=== PATIENT | female | born 1995 | race Caucasian/White ===

== ENCOUNTER 2021-03-20 20:00 | Emergency (ER) | payer MEDICAID, SELFPAY ==
[2021-03-20 20:02] VITALS: BP 118/75; PULSE 96; RESP 16; TEMP 35.9; O2SAT 97; BMI 34.0
--- NOTE | 2021-03-20 20:22 | RAD_ITS ---
STUDY: X-RAY CHEST REASON FOR EXAM: Female, 25 years old. cough TECHNIQUE: Single AP portable view of the chest. COMPARISON: September 17, 2016 FINDINGS: The lungs are clear and expanded. There is no demonstrated pleural abnormality. Normal size heart. Normal mediastinum and jesus. Normal visualized pulmonary arteries. Normal visualized aortic arch and descending thoracic aorta. There is a levoscoliosis of the thoracic spine. Normal visualized ribs, clavicles, and shoulders. There is no demonstrated abnormality of the visualized soft tissue structures of the upper abdomen. RAD/Chest 1 View (Portable) IMPRESSION: Normal x-ray examination of the chest. Electronically Signed: Dayton Burger MD at 21:29 EDT , Service support ,
--- NOTE | 2021-03-20 20:29 | EDS_ITS ---
HPI History of Present Illness Chief Complaint: Cough Narrative Narrative: 25-year-old female presenting with cough, congestion, rhinorrhea. She states she has seasonal allergies and none of the medication she takes form work. She also has a history of asthma but has not been wheezing. She has used her albuterol inhaler in the hopes that it would help with her coughing. It has not. She has not had fever, chills, myalgias, change in taste or smell. Patient had COVID-19 in July of last year so she likely does not have COVID- 19 now. [facility] Medical History (Updated 03/20/21 @ 20:41 by Melissa Collazo RN) Anxiety Asthma Congenital heart defect Depression Home Medications sertraline 150 mg PO DAILY 09/17/16 [History Last Taken 09/17/16] albuterol sulfate [ProAir HFA] 1 inh INHALATION Q6H PRN #8.5 g 03/20/21 [Rx Last Taken Unknown] Allergy/AdvReac Type Severity Reaction Status Date / Time No Known Allergies Allergy Verified 03/20/21 20:01 Social History Smoking Status: Current every day smoker tobacco type: cigarettes ROS ROS ED Constitutional Constitutional ED: Denies chills or fever(s) Eyes Eyes: Denies blurry vision or diplopia ENT ENT ED: Reports rhinorrhea Cardiovascular Cardiovascular: Denies chest pain or palpitations Respiratory/Chest Respiratory/Chest: Reports cough; Denies dyspnea or sputum Gastrointestinal Gastrointestinal: Denies abdominal pain, nausea or vomiting Genitourinary Genitourinary ED: Denies dysuria or hematuria Musculoskeletal Musculoskeletal: Denies arthralgias or myalgias Integumentary Denies abscess, Abrasions or rash Neurologic Neurologic: Denies headache(s), paresthesias or weakness Psychiatric Psychiatric: Denies anxiety or depression EXAM Physical Exam Const Vital Signs: 03/20/21 20:02 Temperature 96.7 F L Temperature Source Temporal Pulse Rate 96 Respiratory Rate 16 Blood Pressure 118/75 Blood Pressure Mean 89 Pulse Ox 97 Positive well nourished General Appearance ED: NAD HEENT Reports moist mucous membranes HEENT Narrative: Nasal congestion atraumatic Eyes PERRL and EOMs intact bilaterally Neck no lymphadenopathy and supple Resp normal respiratory effort and clear to auscultation bilaterally Auscultation: Negative for wheezes Cardio regular rate and regular rhythm Neuro oriented x3 Sensorium / Orientation: alert Psych mental status grossly normal Thought Process: normal thought process Skin Lesions: no lesions Rashes: no rashes MDM MDM MDM Narrative Medical decision making narrative: Patient presented with cough for a week and no viral symptoms. She is not wheezing on examination. Her history and physical is most consistent with allergic rhinitis. She is counseled to start Claritin. I did obtain a chest x-ray on my interpretation this is negative for acute findings. Patient will be given follow-up with ENT. Patient stable discharge. Impression: 1. Allergic rhinitis Discharge Plan Triage Chief Complaint: Cough ED Provider: Arnulfo Wilks Dx/Rx/DC Orders Instructions: ED Allergic Rhinitis Prescriptions: New albuterol sulfate [ProAir HFA] 90 mcg/actuation HFA aerosol inhaler 1 inh inhalation Q6H PRN (Reason: shortness of breath or wheezing) Qty: 8.5 RF: 0 No Action sertraline 50 MG tablet 150 mg PO DAILY RF: 0 Primary Care Provider: PodlogKiley denton NP Referrals: Christofer Swartz MD [STAFF PHYSICIAN] - As soon as possible Kiley Marte NP, [employer]ING MACHINE OPERATOR-[employer] [Primary Care Provider] - Disposition Disposition: Home, Self Care
== END 2021-03-20 21:43 | disposition home or self-care (01) ==
PROVIDERS: Emergency Provider Student in an Organized Health Care Education/Training Program; PCP Nurse Practitioner Primary Care
DX: J45.909 Unspecified asthma, uncomplicated (principal); F32.9 Major depressive disorder, single episode, unspecified; F41.9 Anxiety disorder, unspecified; F17.210 Nicotine dependence, cigarettes, uncomplicated; Z79.899 Other long term (current) drug therapy; Z86.16 Personal history of COVID-19
CPT/HCPCS: 71045; 99282

== ENCOUNTER 2023-03-28 10:41 | Emergency (ER) | payer SELFPAY ==
[2023-03-28 10:42] VITALS: BP 110/72; PULSE 115; RESP 14; TEMP 37.1; O2SAT 98; BMI 38.9
--- NOTE | 2023-03-28 10:55 | EX.ED.DYSGE1 ---
HPI History of Present Illness Chief Complaint: Edema Narrative Narrative: Patient is a 27-year-old female who is presenting with flulike symptoms since Monday. Patient is complaining of nausea, vomiting, myalgia, arthralgia, and not able to eat since Monday. Patient has no headache or neck pain. No ear pain, no sore throat. No chest pain or shortness of breath. Positive nausea vomiting. No diarrhea constipation. Positive urinary frequency, urgency, no dysuria. Patient states her urine is darker. Patient in the last 2 days is able to drink urinate, patient has not been able to eat. Patient has had 1 episode of emesis yesterday and one episode today. Patient looks well. Father at bedside. Patient states she is not , she is due to have her menses in the next few days. No recent traveling. No sick contacts. No other acute complaints. Patient is a ST [employer], she is due to start working again tomorrow. No rash, no other acute complaints. [facility] Medical History (Updated 03/28/23 @ 12:[address] Luc Guevara DO) Anxiety Asthma Congenital heart defect Depression Home Medications sertraline 50 mg tablet 150 mg PO DAILY 09/17/16 [History Last Taken 09/17/16] albuterol sulfate 90 mcg/actuation aerosol inhaler (ProAir HFA) 1 inh inhalation Q6H PRN shortness of breath or wheezing #8.5 grams 03/20/21 [Rx Last Taken Unknown] ondansetron 4 mg disintegrating tablet 4 mg PO Q8H PRN PRN Nausea #10 tabs 03/28/23 [Rx Last Taken Unknown] sulfamethoxazole 400 mg-trimethoprim 80 mg tablet (Bactrim) 1 tab PO QHS 5 days #5 tabs 03/28/23 [Rx Last Taken Unknown] sulfamethoxazole 800 mg-trimethoprim 160 mg tablet 1 tab PO BID #10 TABLETS 03/28/23 [Rx Last Taken Unknown] Allergy/AdvReac Type Severity Reaction Status Date / Time No Known Allergies Allergy Verified 03/28/23 10:42 Social History Smoking Status: Current every day smoker tobacco type: cigarettes ROS ROS ED ROS Narrative REVIEW OF SYSTEMS: Unless otherwise stated in this report the patient's positive and negative responses for review of systems for constitutional, eyes, ENT, cardiovascular, respiratory, gastrointestinal, neurological, , musculoskeletal, and integument systems and related systems to the presenting problem are either stated in the history of present illness or were not pertinent or were negative for the symptoms and/or complaints related to the presenting medical problem. EXAM Physical Exam Narrative Exam Narrative: Vital signs reviewed and patient is not hypoxic. General: The patient appears well and in no apparent distress. Patient is resting comfortably on cart. Not toxic, lethargic, or listless. Skin: Warm, dry, no pallor noted. There is no rash noted. Multiple piercings. Head: Normocephalic, atraumatic Eye: Normal conjunctiva, no drainage, EOMI. PERRL. Ears, Nose, Mouth, and Throat: oral mucosa is moist. Nares patent. Mouth without vesicles. Cardiovascular: Regular Rate and Rhythm, no murmurs, gallops, or rubs Respiratory: Patient is in no distress, no accessory muscle use, lungs are clear to auscultation, no wheezing, rales or rhonchi Back: non-tender, no CVA tenderness bilaterally to percussion. NO CTLS midline or paraspinal tenderness to palpation. GI: Soft, obese, mild left lower quadrant tenderness to palpation, no peritoneal signs, no flank pain bilateral, otherwise no tenderness to palpation, no masses appreciated. No rebound, guarding, or rigidity noted. Musculoskeletal: The patient has full range of motion of all extremities and joints with no difficulty. Patient has no motor, no sensory deficits. Neurological: A&O x4, normal speech, no focal neurological deficits. Psychiatric: Cooperative Const Vital Signs: 03/28/23 10:42 Temperature 98.7 F Temperature Source Temporal Pulse Rate 115 H Respiratory Rate 14 Blood Pressure 110/72 Blood Pressure Mean 84 Pulse Ox 98 MDM MDM MDM Narrative Medical decision making narrative: No acute indication for significant amount of testing. Patient will have urine checked, , and patient was given Zofran ODT. Patient will be given a prescription for Zofran ODT as well. Patient was educated on continuing to increase fluids at home, especially Gatorade, Powerade and water. Patient is due to go back to work tomorrow. Patient will follow-up with PCP as needed. No questions at discharge. Patient does have evidence of UTI as well, patient was placed on Bactrim. Patient was given a work note for tomorrow if needed. Patient is aware of protein in her urine. Patient will follow-up with PCP next week to have her urine rechecked to make sure that protein has resolved. Patient is aware that protein could occur in urine with dehydration or infection, but it should not be in the urine, she will follow-up with PCP to have this rechecked next week Lab Data Attestation: I reviewed the patient's lab results. Labs: Laboratory Results - last 24 hr 03/28/23 11:00 Urine Color Yellow Urine Clarity Sl. Cloudy Urine pH 6.5 Ur Specific [place] 1.010 Urine Protein 500 H Urine Glucose (UA) Normal Urine Ketones 5 H Urine Occult Blood 150 H Urine Nitrite Negative Urine Bilirubin 1 H Urine Urobilinogen 1 H Ur Leukocyte Esterase 500 H Urine RBC 0 SEEN Urine WBC 25-50 SEEN Ur Squamous Epith Cells 0-5 SEEN Urine Bacteria 1+ Urine Mucus 0 SEEN Urine Test Negative Discharge Plan Triage Chief Complaint: Edema Other Complaint: Nausea/Vomiting ED Provider: Luc Guevara Dx/Rx/DC Orders Clinical Impression: Myalgia, Arthralgia, Dehydration, mild, Nausea & vomiting, UTI (urinary tract infection) Instructions: Urinary Tract Infections in Women, ED Arthralgia, ED Dehydration (Adult), ED Myalgias, ED Vomiting (Adult) Prescriptions: New ondansetron 4 mg tablet,disintegrating 4 mg PO Q8H PRN PRN (Reason: Nausea) Qty: 10 0RF sulfamethoxazole-trimethoprim [Bactrim] 400-80 mg tablet 1 tab PO QHS 5 Days Qty: 5 0RF sulfamethoxazole-trimethoprim [sulfamethoxazole-trimethoprim] 800-160 mg tablet 1 tab PO BID Qty: 10 0RF No Action sertraline 50 MG tablet 150 mg PO DAILY albuterol sulfate [ProAir HFA] 90 mcg/actuation HFA aerosol inhaler 1 inh inhalation Q6H PRN (Reason: shortness of breath or wheezing) Qty: 8.5 0RF Stand Alone Forms: ED Work / School Excuse Primary Care Provider: Ruperto Ring Referrals: PodlogarKiley B[employer]IDED RUG MAKER, B[employer]ED [employer]KER-[employer] [Non-Staff] - Activity Restrictions/Additional Instructions: Continue increasing fluids at home, including Gatorade, Powerade, water. Use Zofran only as needed if you are not drinking or urinating off. Continue alternating Tylenol Motrin as needed for myalgia, arthralgia. Follow-up with PCP for any other additional testing and for reevaluation in 2-3 days. Increase fluids with urinary tract infection as well, urine culture is pending. Finish antibiotic. Disposition Disposition: Home, Self Care
[2023-03-28] MEDS: Ondansetron ODT 4 MG Tablet PO (11:07)
[2023-03-28 11:15] LABS: Mucous, Urine 0 SEEN /hpf (<or=2+); Red Blood Cells-Urine 0 SEEN /hpf (0-5)
[2023-03-28 11:16] LABS: Color, Urine Yellow (Yellow); Glucose, Dipstick Normal (Normal); Ketone-Dipstick 5 mg/dl (Negative); Leukocyte Esterase-Dipstick 500 /ul (Negative); Nitrite-Dipstick Negative (Negative); Occult Blood-Urine 150 /ul (Negative); Protein-Dipstick 500 mg/dl (Negative); Urine Clarity Sl. Cloudy (Clear); Urine Urobilinogen 1 mg/dl (Normal); Urine pH 6.5 (5.0 - 8.0)
[2023-03-28 11:20] LABS: Urine Bilirubin Dipstick 1 mg/dL (Negative)
[2023-03-28 11:22] LABS: Bacteria 1+ /hpf (None Seen); Internal QC Validated? YES +Cl - CLEAR BKGD; Pregnancy, Urine Negative Negative; Squamous Epithelial Cells - UA 0-5 SEEN /hpf (5-10); White Blood Cells 25-50 SEEN /hpf (0-5)
== END 2023-03-28 12:22 | disposition home or self-care (01) ==
PROVIDERS: Emergency Provider Emergency Medicine; PCP Family Medicine; Visit Provider Emergency Medicine
DX: N39.0 Urinary tract infection, site not specified (principal); M79.10 Myalgia, unspecified site; E86.0 Dehydration; R11.2 Nausea with vomiting, unspecified; J45.909 Unspecified asthma, uncomplicated; F17.210 Nicotine dependence, cigarettes, uncomplicated
CPT/HCPCS: 81001; 81025; 99283

== ENCOUNTER 2025-01-17 09:53 | Inpatient (IN) | payer BC, SELFPAY ==
[2025-01-17] VITALS (7 sets, daily range): BP systolic 112–141; BP diastolic 49–78; PULSE 80–110; RESP 16–19; TEMP 36.6–37.4; O2SAT 97–100; BMI 36.3
[2025-01-17 10:43] LABS: Absolute Lymphocyte Count 0.47 X10^3/uL (0.83-4.51); Absolute Neutrophil Count 6.7 X10^3/uL (2.0-7.7); Basophil# 0.04 X10^3/uL; Basophil% 0.5 % (0-1); Eosinophil# 0.02 X10^3/uL; Eosinophils% 0.3 % (0-5); Hematocrit 30.8 % (37-47); Hemoglobin 11.1 g/dL (12.0-15.0); Lymphocyte # 0.47 X10^3/ul (0.83-4.51); Lymphocyte % 5.9 % (19-41); Mean Corpuscular Hgb 31.8 pg (27.0-32.0); Mean Corpuscular Volume 88.3 fL (81-99); Mean Platelet Vol. 11.8 fl (6.2-12.0); Monocyte% 8.8 % (0-10); NRBC Flagged by Analyzer 0 % (0-5); Neutrophil # 6.74 X10^3/uL (2.7-7.7); Neutrophil % 84.2 % (47-70); POSITIVE DIFFERENTIAL YES; Platelet Count 178 K/mm3 (150-450); RBC Distribution Width CV 12.9 % (11.6-14.6); RBC Distribution Width SD 41.2 fl (35.1-43.9); Red Blood Count 3.49 M/mm3 (4.2-5.4)
[2025-01-17 11:01] LABS: ALB/GLOB Ratio 1.2 RATIO (0.9-2.4); AST(SGOT) 33 U/L (<=31); Alanine Aminotransfer ALT/SGPT 19 U/L (<=34); Albumin, Serum 3.8 g/dL (3.5-5.0); Alkaline Phosphatase 78 U/L (35-104); Anion Gap 10 (5-15); BUN 18 mg/dL (4-19); BUN/Creat Ratio 8.1 RATIO (10-20); Calcium,Total 8.9 mg/dL (7.6-11.0); Carbon Dioxide 19.4 mmol/L (21.0-32.0); Chloride 105 mmol/L (98-108); Creatinine, Serum 2.18 mg/dL (0.70-1.20); EST Glomerular Filtration Rate 31 (>60); Estimated Creatinine Clearance 36.05 ml/min (50-250); Globulin 3.1 g/dL (2.2-4.2); Glucose 105 mg/dL (70-99); Potassium 4.7 mmol/L (3.3-5.1); Protein, Total 6.9 g/dL (5.9-8.4); Sodium Level 134 mmol/L (133-145); Total Bilirubin 0.72 mg/dL (0.00-1.30)
[2025-01-17 11:02] LABS: Mucous, Urine 0 SEEN /hpf (<or=2+)
[2025-01-17] MEDS: 0.9% Normal Saline (1000mL) 1,000 ML 999 ML IV (11:05)
[2025-01-17] MEDS: Acetaminophen 325 MG Tablet 650 MG PO ×2 (11:06→19:02)
[2025-01-17 11:13] LABS: Internal QC Validated? YES +Cl - CLEAR BKGD; Pregnancy, Serum, hCG Quali. NEGATIVE Negative
--- NOTE | 2025-01-17 11:25 | CT_ITS ---
PROCEDURE: ABDOMEN/PELVIS WITHOUT CONT 01/17/2025 REASON FOR EXAM: BACK PAIN, JOE, FEVER TECHNIQUE: Contiguous axial scans of 2.5 mm slice thicknesses. Sagittal and coronal reconstruction images were obtained. One or more dose reduction techniques were used (e.g., automated exposure control, adjustment of mA and/or kv according to patient size, use of iterative reconstruction technique). COMPARISON: No relevant prior FINDINGS: Lung bases: Unremarkable Liver: Normal in size and attenuation. Gallbladder: Normal. Spleen: Marked splenomegaly. Tip of the spleen extends below the inferior pole of the left kidney. Spleen measures approximately 17 cm in long axis. Pancreas: Unremarkable. Adrenals: No nodules or thickening. Kidneys: Low-density areas in both kidneys measuring 2.5 cm on the left and 2.0 and 1.9 cm on the right. No calcifications. Bladder: Unremarkable. Reproductive Organs: Uterus unremarkable. No adnexal masses. Bowel: No abnormalities demonstrated. Appendix: Normal. Lymph nodes: No adenopathy. Vasculature: No vascular abnormalities. Peritoneum / Retroperitoneum: No masses. No free air. No free fluid. Bones: Normal osseous structures. CT/Abdomen/Pelvis without Cont IMPRESSION: MARKED SPLENOMEGALY. Reading Location: [facility]
[2025-01-17 11:30] LABS: Color, Urine Yellow (Yellow); Glucose, Dipstick Normal (Normal); Ketone-Dipstick Negative (Negative); Leukocyte Esterase-Dipstick 500 /ul (Negative); Nitrite-Dipstick Positive (Negative); Occult Blood-Urine 25 /ul (Negative); Protein-Dipstick 500 mg/dl (Negative); Urine Bilirubin Dipstick Negative (Negative); Urine Clarity Sl Cldy (Clear); Urine Urobilinogen Normal (Normal)
[2025-01-17 11:32] LABS: Bacteria 3+ /hpf (None Seen); Red Blood Cells-Urine 0-5 SEEN /hpf (0-5); Squamous Epithelial Cells - UA 5-10 SEEN /hpf (5-10); White Blood Cells >100 SEEN /hpf (0-5)
--- NOTE | 2025-01-17 12:40 | EX.ED.DYSGE1 ---
HPI History of Present Illness Chief Complaint: Complaint Informant: patient Narrative Narrative: Patient is a 29-year-old female with a history of sounds like a ventral septal defect, anxiety and depression, asthma and reports history of horseshoe kidney presenting from PCP for concern of pyelonephritis. Patient was seen in [facility] this morning for symptoms of back pain and nausea as well as fever 101 today. She states this feels like the last time she had kidney infection so she went there. They sent her to the emergency room. Patient notes that for the past 2 to 3 days she has had constant aching bilateral back pain. Denies any radiation of pain. Denies any dysuria or hematuria but has had associated urgency and frequency. Had episode of vomiting and nausea this morning. Took Excedrin last night for her symptoms. Reports some mild abdominal pain. Denies any history of kidney stones. Is not concerned for . Last menstrual period was January 04. No other complaints or concerns at this time. [facility] Medical History Anxiety Depression Asthma Congenital heart defect Home Medications ?Medication ?Instructions ?Recorded ?Last Taken ?Type sertraline 100 mg tablet 100 mg PO DAILY 01/17/25 Unknown History Allergy/AdvReac Type Severity Reaction Status Date / Time No Known Allergies Allergy Verified 01/17/25 09:54 Social History Smoking Status: Never smoker ROS ROS ED Constitutional Constitutional ED: Reports chills and fever(s) Cardiovascular Cardiovascular: Denies chest pain Respiratory/Chest Respiratory/Chest: Denies cough Gastrointestinal Gastrointestinal: Reports abdominal pain, nausea and vomiting; Denies constipation or diarrhea Musculoskeletal Musculoskeletal: Reports back pain; Denies arthralgias Integumentary Denies rash Neurologic Neurologic: Denies paresthesias or weakness EXAM Physical Exam Const Vital Signs: 01/17/25 09:54 01/17/25 10:34 01/17/25 11:24 Temperature 98 F 98 F Temperature Source Temporal Temporal Pulse Rate 110 H 98 80 Respiratory Rate 19 H 16 16 Blood Pressure 141/70 H 141/78 H 112/71 Blood Pressure Mean 93 99 84 Pulse Ox 98 100 97 Oxygen Delivery Method Room Air Room Air 01/17/25 12:55 Temperature Temperature Source Pulse Rate 97 Respiratory Rate 19 H Blood Pressure Blood Pressure Mean Pulse Ox 99 Oxygen Delivery Method Room Air Positive well nourished and well developed General Appearance ED: well developed and NAD HEENT Reports moist mucous membranes Chest Wall inspection of chest normal Resp normal respiratory effort and clear to auscultation bilaterally Cardio regular rate and regular rhythm GI normal to inspection, nondistended, normoactive bowel sounds, non-tender and non-distended Palpation: soft; Negative for tender or guarding Back/Spine Back/Spine Narrative: No specific CVA tenderness the patient has bilateral lower thoracic discomfort. No midline tenderness. Lumbar Spine / Lower Back: Negative for lumbar spinal tenderness Extremity normal to inspection Neuro oriented x3 Sensorium / Orientation: alert Motor Exam: Negative for general weakness Psych mental status grossly normal Skin no rashes or lesions noted and no wounds MDM MDM MDM Narrative Medical decision making narrative: Patient is evaluated for back pain, fever prior to arrival now nausea and vomiting. Ports history of horseshoe kidney. Has a reported history of urinary tract infections. Not aware of any history of CKD. Differential includes pyelonephritis, renal colic, JOE and electrolyte abnormality as well as small bowel obstruction given her vomiting. CBC largely normal except for mild anemia with a hemoglobin 11.1. Her platelets are normal. CMP does show an JOE with a creatinine of 2.18 and mildly decreased bicarb of 19.4 however she is a normal anion gap. Urinalysis is highly consistent with urinary tract infection with positive nitrates, 500 leukocyte esterase, greater than 100 white blood cells and 3+ bacteria. Culture sent. Started on IV Rocephin. is negative. CT abdomen pelvis is obtained which does not show any acute abnormalities however it does show marked splenomegaly. Patient is informed of this and she states that she thinks she had an ultrasound a couple years ago for an enlarged spleen. The CT did comment on low-density areas of both kidneys measuring 2.5 cm on the left and 2 and 1.9 cm on the right with no calcifications. This is of uncertain clinical significance. Given her suspected pyelonephritis given back pain and UTI on exam as well as JOE do think she would benefit from admission. Case is discussed with hospitalist, Dr. Chandler. Lab Data Attestation: I reviewed the patient's lab results. Labs: Laboratory Results - last 24 hr 01/17/25 01/17/25 10:25 10:56 WBC 8.0 RBC 3.49 L Hgb 11.1 L Hct 30.8 L MCV 88.3 MCH 31.8 MCHC 36.0 RDW Std Deviation 41.2 RDW Coeff of [place] 12.9 Plt Count 178 MPV 11.8 Immature Gran % (Auto) 0.300 Neut % (Auto) 84.2 H Lymph % (Auto) 5.9 L [place] % (Auto) 8.8 Eos % (Auto) 0.3 Baso % (Auto) 0.5 Absolute Neuts (auto) 6.7 Absolute Lymphs (auto) 0.47 L Nucleated RBC % 0 Sodium 134 Potassium 4.7 Chloride 105 Carbon Dioxide 19.4 L Anion Gap 10 BUN 18 Creatinine 2.18 H Estim Creat Clear Calc 36.05 L Est GFR (MDRD) Non-Af 31 L BUN/Creatinine Ratio 8.1 L Glucose 105 H Calcium 8.9 Total Bilirubin 0.72 AST 33 H ALT 19 Alkaline Phosphatase 78 Total Protein 6.9 Albumin 3.8 Globulin 3.1 Albumin/Globulin Ratio 1.2 Serum , Qual NEGATIVE Urine Color Yellow Urine Clarity Sl Cldy Urine pH 6.0 Ur Specific [place] 1.010 Urine Protein 500 H Urine Glucose (UA) Normal Urine Ketones Negative Urine Occult Blood 25 H Urine Nitrite Positive H Urine Bilirubin Negative Urine Urobilinogen Normal Ur Leukocyte Esterase 500 H Urine RBC 0-5 SEEN Urine WBC >100 SEEN Ur Squamous Epith Cells 5-10 SEEN Urine Bacteria 3+ Urine Mucus 0 SEEN Radiography Diagnostic Testing: Clinical Impression(s) from Imaging Studies Abdomen/Pelvis CT 01/17/25 11:25 IMPRESSION: MARKED SPLENOMEGALY. Reading Location: [facility] Management Discussion w/another healthcare provider: Hospitalist Discharge Plan Dx/Rx/DC Orders Clinical Impression: Complicated urinary tract infection, JOE (acute kidney injury) Disposition Disposition: Acute Care Hospital [facility] Discharge Date/Time: 01/17/25 15:05
--- NOTE | 2025-01-17 13:33 | HP.PCM.HOS_ITS ---
HPI - General General Date of Admission: 01/17/25 Date of Service: 01/17/25 Chief Complaint: Back pain, urinary frequency and urgency HPI Narrative LESA MANDUJANO, is a 29-year-old female history of ?VSD, anxiety depression, asthma, horseshoe kidney presented to [facility] ED 01/17/2025 from her PCPs office due to concerns for UTI versus pyelonephritis. She was seen in clinic clinic [place] this a.m. for back pain and nausea as well as fever of 101 today and patient felt like his last time she had a kidney infection so she was sent to the ED. In the ED temperature 98, heart rate 110 with blood pressure 141/70, respiratory rate 19 and pulse ox 98% on room air. Patient patient noted to have white blood cell count of 8, hemoglobin of 11.1, creatinine 2.18 with no values since 2016, negative test, UA suspicious for UTI. CT abdomen pelvis only noted splenomegaly and in the body of the report noted some hypodensities in the kidneys. Given patient's elevated creatinine with her fever, symptoms, positive UA hospitalist contacted for admission. Patient evaluated at bedside and reports that back pain especially on the right side, urgency, frequency over the past 3 days with vomiting this a.m. fevers above. Presently feels about the same. No abdominal pain in the front or GI symptoms, ROS otherwise negative [facility] Medical History Anxiety Depression Asthma Congenital heart defect Home Medications ?Medication ?Instructions ?Recorded ?Last Taken ?Type sertraline 50 mg tablet 150 mg PO DAILY 09/17/1603/27 History albuterol sulfate 90 mcg/actuation 1 inh inhalation Q6 H PRN shortness 03/20/21 Unknown Rx aerosol inhaler (ProAir HFA) of breath or wheezing #8. 5 grams ondansetron 4 mg disintegrating 4 mg PO Q8H PRN PRN Na usea #10 tabs 03/28/23 Unknown Rx tablet sulfamethoxazole 400 1 tab PO QHS 5 days #5 tabs 03/28/23 Unknown Rx mg-trimethoprim 80 mg tablet (Bactrim) sulfamethoxazole 800 1 tab PO BID #10 TABLETS Unknown Rx mg-trimethoprim 160 mg tablet Allergy/AdvReac Type Severity Reaction Status Date / Time No Known Allergies Allergy Verified 01/17/25 09:54 Social History Smoking Status: Current every day smoker tobacco type: cigarettes ROS ROS Narrative General: Fever earlier today HENT: Denies headache, denies stuffy nose, denies sore throat EYES: Denies changes in vision Resp: Denies cough, denies shortness of breath Cardiac: Denies chest pain GI: Denies abdominal pain but does have some back pain, denies changes in bowel, nausea earlier today : urinary frequency and urgency Extremity: Denies swelling MSK: Denies weakness Neuro: Denies any numbness/tingling Heme: Denies any bleeding or bruising Skin: Denies rashes Psychiatric: No complaints voiced Vital Signs Vital Signs Vital Signs: 01/17/25 09:54 01/17/25 10:34 01/17/25 11:24 Temperature 98 F 98 F Temperature Source Temporal Temporal Pulse Rate 110 H 98 80 Respiratory Rate 19 H 16 16 Blood Pressure 141/70 H 141/78 H 112/71 Blood Pressure Mean 93 99 84 Pulse Ox 98 100 97 Oxygen Delivery Method Room Air Room Air 01/17/25 12:55 Temperature Temperature Source Pulse Rate 97 Respiratory Rate 19 H Blood Pressure Blood Pressure Mean Pulse Ox 99 Oxygen Delivery Method Room Air Weight Weight: 79.016 kg Body Mass Index (BMI) 36.3 Physical Exam Narrative General: Alert, oriented, no apparent distress HEENT: Atraumatic, normocephalic Eyes: Anicteric, normal conjunctiva, extraocular movements grossly intact Neck: Supple Respiratory: Clear to auscultation bilaterally, normal respiratory effort Cardiovascular: Regular rate and rhythm GI: Soft, nontender, nondistended, right sided flank pain Extremities: No edema Musculoskeletal: Moving all extremities Neuro: No overt focal neurological deficits Skin: No rashes appreciated Psych: Cooperative Results Lab / Micro Data 01/17/25 10:25 01/17/25 10:25 Labs: Laboratory Results - last 24 hr 01/17/25 10:25: WBC 8.0, RBC 3.49 L, Hgb 11.1 L, Hct 30.8 L, MCV 88.3, MCH 31.8, MCHC 36.0, RDW Std Deviation 41.2, RDW Coeff of [place] 12.9, Plt Count 178, MPV 11.8, Immature Gran % (Auto) 0.300, Neut % (Auto) 84.2 H, Lymph % (Auto) 5.9 L, [place] % (Auto) 8.8, Eos % (Auto) 0.3, Baso % (Auto) 0.5, Absolute Neuts (auto) 6.7, Absolute Lymphs (auto) 0.47 L, Nucleated RBC % 0, Sodium 134, Potassium 4.7, Chloride 105, Carbon Dioxide 19.4 L, Anion Gap 10, BUN 18, Creatinine 2.18 H, Estim Creat Clear Calc 36.05 L, Est GFR (MDRD) Non-Af 31 L, BUN/Creatinine Ratio 8.1 L, Glucose 105 H, Calcium 8.9, Total Bilirubin 0.72, AST 33 H, ALT 19, Alkaline Phosphatase 78, Total Protein 6.9, Albumin 3.8, Globulin 3.1, Albumin/Globulin Ratio 1.2, Serum , Qual NEGATIVE 01/17/25 10:56: Urine Color Yellow, Urine Clarity Sl Cldy, Urine pH 6.0, Ur Specific Early 1.010, Urine Protein 500 H, Urine Glucose (UA) Normal, Urine Ketones Negative, Urine Occult Blood 25 H, Urine Nitrite Positive H, Urine Bilirubin Negative, Urine Urobilinogen Normal, Ur Leukocyte Esterase 500 H, Urine RBC 0-5 SEEN, Urine WBC >100 SEEN, Ur Squamous Epith Cells 5-10 SEEN, Urine Bacteria 3+, Urine Mucus 0 SEEN Imaging Radiology Impression Abdomen/Pelvis CT 01/17/25 11:25 IMPRESSION: MARKED SPLENOMEGALY. Reading Location: [facility] Assessment & Plan Assessment/Plan (1) Complicated urinary tract infection: PLAN: Plan # Complicated urinary tract infection - UA highly suggestive of UTI -Urine culture sent -Empiric antibiotics -CT did not comment on any concerns for pyelonephritis # JOE versus CKD in setting of partial kidney -No previous creatinines in recent years for comparison, last 1 was 2017 so unclear if this is JOE or CKD but patient denies known history of kidney failure, only known horseshoe kidney -IV fluids -Repeat in the a.m. -Avoid nephrotoxic agents # Hypodensities in kidney - Will obtain dedicated renal ultrasound given indeterminant renal lesions # Splenomegaly - Patient reports this is known - Outpatient follow-up #Depression/anxiety -Continue home medications # History of asthma - As needed albuterol # History of congenital heart defect - Suspected to be VSD - Noted #DVT ppx: SCDs Leesa Chandler MD Charges/Coding Visit Charges Inpatient E&M: 34537 Init Hosp L2
--- NOTE | 2025-01-17 13:46 | US_ITS ---
EXAM: US Retroperitoneal Limited, Renal CLINICAL INDICATION: INDETERMINANT RENAL LESIONS TECHNIQUE: Real-time limited ultrasound of the retroperitoneum with image documentation. COMPARISON: No relevant prior studies available. FINDINGS: RIGHT KIDNEY: Multiple right renal cysts, largest measuring up to 3.2 cm. No stones. The right kidney measures 8.0 x 4.0 x 4.6 cm. LEFT KIDNEY: Unremarkable. No stones. No hydronephrosis. The left kidney measures 9.6 x 5.6 x 4.7 cm. BLADDER: Urinary bladder appears normal. Prevoid volume 224 cc. OTHER FINDINGS: 3.1 cm cyst with septation. US/Kidney and Bladder IMPRESSION: Bilateral renal cysts. Reading Location: [id number]
[2025-01-17] MEDS: Ceftriaxone 1 GM/50 ML BAG IV (13:48)
[2025-01-17] MEDS: 0.9% Normal Saline (1000mL) 1,000 ML 75 ML IV (19:07)
[2025-01-18] MEDS: Acetaminophen 325 MG Tablet 650 MG PO ×2 (04:39→20:21)
[2025-01-18 04:42] VITALS: BP 134/72; PULSE 87; RESP 16; TEMP 37; O2SAT 100
[2025-01-18 06:53] LABS: Absolute Lymphocyte Count 0.69 X10^3/uL (0.83-4.51); Basophil# 0.03 X10^3/uL; Basophil% 0.6 % (0-1); Eosinophil# 0.03 X10^3/uL; Eosinophils% 0.6 % (0-5); Hematocrit 28.2 % (37-47); Hemoglobin 9.8 g/dL (12.0-15.0); Lymphocyte # 0.69 X10^3/ul (0.83-4.51); Lymphocyte % 12.8 % (19-41); Mean Corp Hgb Conc 34.8 g/dL (32-36); Mean Corpuscular Hgb 31.3 pg (27.0-32.0); Mean Corpuscular Volume 90.1 fL (81-99); Mean Platelet Vol. 10.9 fl (6.2-12.0); Monocyte# 0.61 X10^3/uL; Monocyte% 11.4 % (0-10); NRBC Flagged by Analyzer 0 % (0-5); Neutrophil # 3.99 X10^3/uL (2.7-7.7); Neutrophil % 74.2 % (47-70); Platelet Count 106 K/mm3 (150-450); RBC Distribution Width CV 13.1 % (11.6-14.6); Red Blood Count 3.13 M/mm3 (4.2-5.4); White Blood Count 5.4 K/mm3 (4.4-11.0)
[2025-01-18 07:23] LABS: Anion Gap 10 (5-15); BUN 17 mg/dL (4-19); BUN/Creat Ratio 8.4 RATIO (10-20); Calcium,Total 8.6 mg/dL (7.6-11.0); Carbon Dioxide 20.6 mmol/L (21.0-32.0); Chloride 108 mmol/L (98-108); Creatinine, Serum 1.97 mg/dL (0.70-1.20); EST Glomerular Filtration Rate 35 (>60); Estimated Creatinine Clearance 39.89 ml/min (50-250); Glucose 115 mg/dL (70-99); Sodium Level 138 mmol/L (133-145)
--- NOTE | 2025-01-18 08:15 | PN.HOSP_ITS ---
Reason for Visit Reason for Visit: Dysuria/urinary frequency/urinary urgency Subjective Subjective Patient states she is feeling a bit better today. Still having some ongoing back pain. Afebrile since presentation. Objective Data Objective Data Vital Signs: Vital Signs Temp Pulse Resp BP Pulse Ox O2 Del Method 98.6 F 87 16 134/72 H 100 Room Air 01/18/25 04:42 01/18/25 04:42 01/18/25 04:42 01/18/25 04:42 01/18/25 04:42 01/18/25 04:42 Oxygen Delivery Method Room Air Weight: 79.016 kg Body Mass Index (BMI) 36.3 Intake & Output: Intake and Output for Last 24 Hours 01/16/25 01/17/25 01/18/25 23:59 23:59 23:59 Intake Total 1050 / 1250 350 / 350 Balance 1050 / 1250 350 / 350 Lab / Micro Data 01/18/25 05:58 01/18/25 05:58 Labs: Laboratory Results - last 24 hr 01/17/25 10:25: WBC 8.0, RBC 3.49 L, Hgb 11.1 L, Hct 30.8 L, MCV 88.3, MCH 31.8, MCHC 36.0, RDW Std Deviation 41.2, RDW Coeff of [place] 12.9, Plt Count 178, MPV 11.8, Immature Gran % (Auto) 0.300, Neut % (Auto) 84.2 H, Lymph % (Auto) 5.9 L, [place] % (Auto) 8.8, Eos % (Auto) 0.3, Baso % (Auto) 0.5, Absolute Neuts (auto) 6.7, Absolute Lymphs (auto) 0.47 L, Nucleated RBC % 0, Sodium 134, Potassium 4.7, Chloride 105, Carbon Dioxide 19.4 L, Anion Gap 10, BUN 18, Creatinine 2.18 H, Estim Creat Clear Calc 36.05 L, Est GFR (MDRD) Non-Af 31 L, BUN/Creatinine Ratio 8.1 L, Glucose 105 H, Calcium 8.9, Total Bilirubin 0.72, AST 33 H, ALT 19, Alkaline Phosphatase 78, Total Protein 6.9, Albumin 3.8, Globulin 3.1, Albumin/Globulin Ratio 1.2, Serum , Qual NEGATIVE 01/17/25 10:56: Urine Color Yellow, Urine Clarity Sl Cldy, Urine pH 6.0, Ur Specific [place] 1.010, Urine Protein 500 H, Urine Glucose (UA) Normal, Urine Ketones Negative, Urine Occult Blood 25 H, Urine Nitrite Positive H, Urine Bilirubin Negative, Urine Urobilinogen Normal, Ur Leukocyte Esterase 500 H, Urine RBC 0-5 SEEN, Urine WBC >100 SEEN, Ur Squamous Epith Cells 5-10 SEEN, Urine Bacteria 3+, Urine Mucus 0 SEEN 01/18/25 05:58: WBC 5.4, RBC 3.13 L, Hgb 9.8 L, Hct 28.2 L, MCV 90.1, MCH 31.3, MCHC 34.8, RDW Std Deviation 43.0, RDW Coeff of [place] 13.1, Plt Count 106 L, MPV 10.9, Immature Gran % (Auto) 0.400, Neut % (Auto) 74.2 H, Lymph % (Auto) 12.8 L, [place] % (Auto) 11.4 H, Eos % (Auto) 0.6, Baso % (Auto) 0.6, Absolute Neuts (auto) 4.0, Absolute Lymphs (auto) 0.69 L, Nucleated RBC % 0, Sodium 138, Potassium 4.0, Chloride 108, Carbon Dioxide 20.6 L, Anion Gap 10, BUN 17, Creatinine 1.97 H, Estim Creat Clear Calc 39.89 L, Est GFR (MDRD) Non-Af 35 L, BUN/Creatinine Ratio 8.4 L, Glucose 115 H, Calcium 8.6 Radiography Diagnostic Testing: Radiology Impression Abdomen/Pelvis CT 01/17/25 11:25 IMPRESSION: MARKED SPLENOMEGALY. Reading Location: [facility] Physical Exam Const alert, oriented x3, no apparent distress, average body habitus and well nourished Constitutional Narrative: Young, white female, lying in left side-lying, obese, appears comfortable, nontoxic but does appear as if she is not feeling well HEENT head/scalp atraumatic and moist oral mucous membranes Head and Scalp: normocephalic Resp normal respiratory effort, no retractions, no use of accessory muscles and clear to auscultation bilaterally Cardio regular rate, regular rhythm, S1 normal heart sound, S2 normal heart sound, no murmurs, no rub, no gallops and no clicks GI normal to inspection, nondistended, normoactive bowel sounds, soft to palpation and non-tender Narrative: Mild flank pain on the right side with palpation Extremity no clubbing, cyanosis or edema Neuro oriented x3 and moves all extremities Speech: speech normal Psych Psych Narrative: Slightly flat but appropriate for the situation, eye contact is good and patient interacts appropriately Assessment & Plan Assessment/Plan (1) Complicated urinary tract infection: (2) Elevated serum creatinine: (3) Anemia: (4) Thrombocytopenia: PLAN: Plan Complicated E. coli urinary tract infection - Continue ceftriaxone - Sensitivities are pending but presumptive E. coli has been identified - CT did not identify pyelonephritis - Renal ultrasound is done but pending read - Continue as needed pain medication Elevated serum creatinine -baseline is unknown however patient has known horseshoe kidney at baseline - Has been hydrated with no significant change - Check urine lites - Only slight improvement in renal function from 2.18-1.97 with IV fluids - Avoid nephrotoxins - Repeat lab in a.m. Anemia - Baseline is unknown - May be diluted from all the fluid she has received - No signs of bleeding - Check iron studies, ferritin, and reticulocyte count - May be related to chronic renal disease depending what her baseline renal function is Thrombocytopenia - Again baseline is unknown - Patient has chronic splenomegaly at baseline and patient states she is aware of this and is followed - May be related to this - Will trend - Again no signs of bleeding Splenomegaly - Chronic - Ongoing outpatient follow-up History of asthma - As needed albuterol History of congenital heart defect - Reported to be VSD - Ongoing outpatient follow-up next-no acute issues Depression/anxiety - Continue home sertraline Obesity - BMI 36.4 - Recommend weight loss - Complicates treatment, prognosis, outcomes DVT prophylaxis - Overall low risk - If hospitalization is longer than 48 hours will start heparin subcu CODE STATUS - Full code Charges/Coding Visit Charges Inpatient E&M: 47991 Subs Hosp L2
[2025-01-18 08:52] VITALS: BP 117/60; PULSE 58; RESP 16; TEMP 36.3; O2SAT 100
[2025-01-18] MEDS: 0.9% Normal Saline (1000mL) 1,000 ML 75 ML IV (08:56)
[2025-01-18] MEDS: Ceftriaxone 1 GM/50 ML BAG IV (08:58)
[2025-01-18] MEDS: Sertraline 50 MG Tablet 150 MG PO (08:59)
--- NOTE | 2025-01-18 11:55 | CASEMGMT ---
Social Work met w/pt in room in regard to prior level of function and anticipated discharge plan. PCP: Dr. Kishor Ring Specialists: None Insurance/prescription coverage: [facility]: Don LOTT: Mother, , two children(10 and 6) LW/POA: Has not completed, SW did educate pt to decision maker order, should this be needed and pt does not have POA. Pt states understanding, not interested in completing documents at this time. Living arrangements: Pt lives home w/ Quincy and children ages 10 and 6. Pt's children are with their grandmother(pt's mother) at this time while she is here in the hospital. Pt is fully independent w/all ADLs, drives DME/SNF/HHC: No history of any of these. Plan at d/c: Home. Pt does not anticipate any homegoing needs, plans to return home w/family. SW remains available should any needs arise. ROMIE Herrera
[2025-01-18 14:13] VITALS: BP 154/91; PULSE 66; RESP 16; TEMP 36.8; O2SAT 95
[2025-01-18 15:58] LABS: Platelet Count 110 K/mm3 (150-450); RET-HE 32.7 pg (30-35); Reticulocyte Count 2.16 % (0.5-1.5)
[2025-01-18 16:29] LABS: Ferritin 217 ng/mL (22-378); Iron 30 ug/dL (50-170); Iron Binding Capacity,Unsat 181 ug/dL (228-428)
[2025-01-18 17:14] LABS: Urine Sodium 66 mmol/L (Not Establ.)
[2025-01-18 17:32] LABS: Iron Binding Capacity,Total 211 ug/dL (250-450)
[2025-01-18 20:18] VITALS: BP 133/68; PULSE 62; RESP 15; TEMP 36.7; O2SAT 100
[2025-01-19 05:06] VITALS: BP 120/69; PULSE 66; RESP 16; TEMP 36.6; O2SAT 100
[2025-01-19 05:43] LABS: Absolute Lymphocyte Count 0.97 X10^3/uL (0.83-4.51); Absolute Neutrophil Count 2.1 X10^3/uL (2.0-7.7); Basophil# 0.03 X10^3/uL; Basophil% 0.8 % (0-1); Eosinophil# 0.15 X10^3/uL; Eosinophils% 3.9 % (0-5); Hemoglobin 10.5 g/dL (12.0-15.0); Lymphocyte # 0.97 X10^3/ul (0.83-4.51); Lymphocyte % 25.1 % (19-41); Mean Corp Hgb Conc 33.9 g/dL (32-36); Mean Corpuscular Hgb 31.1 pg (27.0-32.0); Mean Corpuscular Volume 91.7 fL (81-99); Mean Platelet Vol. 10.6 fl (6.2-12.0); Monocyte% 15.5 % (0-10); NRBC Flagged by Analyzer 0 % (0-5); Neutrophil % 54.4 % (47-70); Platelet Count 108 K/mm3 (150-450); RBC Distribution Width CV 13.4 % (11.6-14.6); RBC Distribution Width SD 44.8 fl (35.1-43.9); Red Blood Count 3.38 M/mm3 (4.2-5.4); White Blood Count 3.9 K/mm3 (4.4-11.0)
[2025-01-19 06:10] LABS: Anion Gap 10 (5-15); BUN 16 mg/dL (4-19); BUN/Creat Ratio 8.9 RATIO (10-20); Calcium,Total 8.6 mg/dL (7.6-11.0); Carbon Dioxide 18.9 mmol/L (21.0-32.0); Chloride 113 mmol/L (98-108); Creatinine, Serum 1.79 mg/dL (0.70-1.20); EST Glomerular Filtration Rate 39 (>60); Glucose 88 mg/dL (70-99); Potassium 4.3 mmol/L (3.3-5.1); Sodium Level 142 mmol/L (133-145)
[2025-01-19 08:21] VITALS: BP 129/74; PULSE 67; RESP 16; TEMP 36.7; O2SAT 97
[2025-01-19] MEDS: Sertraline 50 MG Tablet 150 MG PO (08:24)
[2025-01-19] MEDS: 0.9% Saline Lock 10 ML Syringe IV (10:12)
[2025-01-19] MEDS: Ceftriaxone 1 GM/50 ML BAG IV (10:12)
--- NOTE | 2025-01-19 11:22 | DS.PCM_ITS ---
Providers Date of Admission: 01/17/25 Date of Discharge: 01/19/25 Primary Care Physician: Dr. Ruperto Ring MD Reason For Visit: COMPLICATED UTI Diagnosis Discharge Diagnosis (1) Complicated urinary tract infection: Status: Acute Code(s): N39.0 - Urinary tract infection, site not specified (2) Elevated serum creatinine: Status: Acute Code(s): R79.89 - Other specified abnormal findings of blood chemistry (3) Anemia: Status: Acute Code(s): D64.9 - Anemia, unspecified (4) Thrombocytopenia: Status: Acute Code(s): D69.6 - Thrombocytopenia, unspecified Medications at Discharge Home Medications sertraline 100 mg tablet 100 mg PO DAILY 01/17/25 fosfomycin tromethamine 3 gram oral packet 1 packet PO QODAY 2 doses #2 ea 01/19/25 Hospital Course Operations None Procedures - (CT abdomen pelvis/renal ultrasound) Summary of Care Provided Minutes Spent on Discharge: 37 Hospital Course: Patient is a 29-year-old white female presents emergency department at [facility] on 01/17/2025 with back pain, urinary frequency and urinary urgency. She was seen at the clinic in [place] on the a.m. of admission for back pain and nausea as well as a fever of 101 on the day of presentation and she stated at that time she felt like the last time she had a kidney infection she felt like this so they referred her to the emergency department. Vital signs on presentation to the emergency department showed a temperature of 98, heart rate 110, respiratory rate was 19, blood pressure was 141/70 and pulse ox was 98% room air. CBC was overtly unremarkable other than anemia with a hemoglobin 11.1 and a left shift with an 84.2% neutrophilia. Her chemistry panel showed normal electrolytes but her serum creatinine was elevated at 2.18 with normal BUN. The most recent creatinine we have in our system was from 2017 at which time her creatinine was 1.25. Liver functions were unremarkable. test was negative. CT of the abdomen pelvis was unremarkable other than marked splenomegaly which is a chronic issue for her. Given her renal function abnormalities a renal ultrasound was ordered at the time of admission and showed only bilateral renal cysts. Urine culture was obtained and she was started on ceftriaxone. With her renal function elevation we did calculate a FeNa which turned out to be 2.17 as she was fairly unresponsive to IV fluids. We did obtain iron studies and she does not appear to be iron deficient but I do wonder if her anemia is related to chronic disease and possibly renal dysfunction. I have asked her to follow-up with nephrology after discharge from the hospital with her abnormal renal function and congenital abnormality with a horseshoe kidney. She also was found to be thrombocytopenic which I suspect is chronic from her chronic splenomegaly. She states she follows as an outpatient for this already. Her urine culture showed ESBL producing organism. We gave her a dose of fosfomycin here prior to discharge and she will take another 2 doses every other day for the next 4 days. She was given nephrology to follow- up with and asked to call on Monday to set up that appointment. She is asked to follow-up with her primary care physician as needed. Discharge diagnoses: Complicated ESBL E. coli UTI CKD-stage unknown Horseshoe kidney Anemia of chronic disease Chronic thrombocytopenia Splenomegaly History of asthma Congenital heart defect Anxiety Depression Obesity Physical Exam Const alert, oriented x3, no apparent distress, average body habitus and well nourished Constitutional Narrative: Young, white female, sitting in bed, obese, appears comfortable, nontoxic but does appear as if she is not feeling well General Appearance: cooperative, comfortable, well kempt and well developed Exam Limitations: no limitations Nutritional Appearance: obese HEENT head/scalp atraumatic and moist oral mucous membranes Eyes EOMs intact bilaterally Eyes Narrative: Mild conjunctival pallor, no sclerae icterus Neck supple Neck Narrative: Neck is short and thick, trachea midline Resp normal respiratory effort, no retractions, no use of accessory muscles and clear to auscultation bilaterally Cardio regular rate, regular rhythm, S1 normal heart sound, S2 normal heart sound, no murmurs, no rub, no gallops and no clicks GI normal to inspection, nondistended, normoactive bowel sounds, soft to palpation and non-tender Narrative: Flank pain is resolved Extremity no clubbing, cyanosis or edema Extremity Narrative: Pedal and radial pulses are 2+ Skin no wounds, skin turgor normal and no jaundice Neuro oriented x3 and moves all extremities Speech: speech normal Psych affect normal Psych Narrative: Interacts appropriately Weight / BMI Weight Weight: 79.016 kg Body Mass Index (BMI) 36.3 ABG / Lab / Microbiology Data 01/19/25 05:03 01/19/25 05:03 Laboratory: Laboratory Results - last 24 hr 01/18/25 13:45: Retic Count 2.16 H, Immature Retic Fraction 7.20, Retic Hgb Equivalent 32.7, Iron 30 L, TIBC 211 L, Iron Saturation 14.0, Unsaturated IBC 181 L, Ferritin 217 01/18/25 16:15: Ur Random Sodium 66, Urine Creatinine 41.50 01/19/25 05:03: WBC 3.9 L, RBC 3.38 L, Hgb 10.5 L, Hct 31.0 L, MCV 91.7, MCH 31.1, MCHC 33.9, RDW Std Deviation 44.8 H, RDW Coeff of [place] 13.4, Plt Count 108 L, MPV 10.6, Immature Gran % (Auto) 0.300, Neut % (Auto) 54.4, Lymph % (Auto) 25.1, [place] % (Auto) 15.5 H, Eos % (Auto) 3.9, Baso % (Auto) 0.8, Absolute Neuts (auto) 2.1, Absolute Lymphs (auto) 0.97, Nucleated RBC % 0, Sodium 142, Potassium 4.3, Chloride 113 H, Carbon Dioxide 18.9 L, Anion Gap 10, BUN 16, C reatinine 1.79 H, Estim Creat Clear Calc 43.90 L, Est GFR (MDRD) Non-Af 39 L, B UN/Creatinine Ratio 8.9 L, Glucose 88, Calcium 8.6 Microbiology: Microbiology 01/17/25 10:56 Urine, Random Urine Culture - Preliminary ESBL Escherichia coli Radiography Diagnostic Testing: Radiology Impression Renal Ultrasound 01/17/25 13:46 IMPRESSION: Bilateral renal cysts. Reading Location: [facility] [place] [place] D/C Instructions Discharge Diet: No restrictions Discharge Activity: Return to Normal Activity Return to work on: 01/20/25 DC O2, CPAP, BIPAP Needs Home O2 Discharge instructions: No Meaningful Use Info Meaningful Use Meaningful Use Diagnoses (Choose all that apply): None applicable Ischemic Stroke Statin Dosing Therapy Reference: STATIN DOSE THERAPY REFERENCE: * Patients > 75 years receive moderate or high dose statin therapy. * Patients 75 years or YOUNGER should receive HIGH intensity statin dose unless contraindicated. You will be required to document reason for non-treatment if statin daily dose does not meet guidelines. HIGH DOSE STATIN THERAPY DAILY Atorvastatin > than or = to 40 mg Rosuvastatin > than or = to 20 mg Amlodipine + Atorvastatin > than or = to 2.5/40 mg Ezetimibe + Simvastatin 10/80 mg Simvastatin 80mg Discharge Plan Admission Admit Date/Time: 01/17/25 13:33 Primary Reason for Your Visit: Dysuria/urinary frequency/urinary urgency Attending Provider: Anisha Scott Primary Care Provider: Ruperto Ring Consulting Providers: Leesa Chandler Instructions Additional Instructions / Restrictions: 1. Please call the arranging funeral director office tomorrow to set up appointment because your kidney function is not quite normal and I will think you should be evaluated by a kidney doctor and be monitored closely with your history of horseshoe kidney 2. Please complete antibiotics as ordered-->your next dose is due on 01/21/2025 and your last dose will be 01/23/2025 Discharge Orders/Prescriptions Prescriptions: New fosfomycin tromethamine 3 gram packet 1 packet PO QODAY Qty: 2 0RF Continued sertraline 100 mg tablet 100 mg PO DAILY Referrals / Follow Up: Ruperto Ring MD [Primary Care Provider] - See Referral Note (As needed) Srinivas Monroe MD [Med Staff - Consulting] - Within 1 Month (Abnormal kidney function with history of horseshoe kidney) Disposition Disposition (needs filled in before D/C Order can be placed): Home, Self Care Charges/Coding Visit Charges Inpatient E&M: 93290 Disch Hosp >30min
[2025-01-19] MEDS: FOSFOMYCIN TROMETHAMINE 3 GM PACKET PO (11:36)
== END 2025-01-19 12:11 | disposition home or self-care (01) | DRG 683 ==
LOC: ED 11:15 → MS3 13:52
PROVIDERS: Admitting Provider Internal Medicine; Emergency Provider Emergency Medicine; PCP Family Medicine; Referring Provider Emergency Medicine; Visit Provider Internal Medicine
DX: N17.9 Acute kidney failure, unspecified (principal); Q21.0 Ventricular septal defect; D63.8 Anemia in other chronic diseases classified elsewhere; D69.6 Thrombocytopenia, unspecified; F32.A Depression, unspecified; E66.9 Obesity, unspecified; F41.9 Anxiety disorder, unspecified; Q24.9 Congenital malformation of heart, unspecified; N28.1 Cyst of kidney, acquired; Z68.36 Body mass index [BMI] 36.0-36.9, adult; B96.20 Unspecified Escherichia coli [E. coli] as the cause of diseases classified elsewhere; Q63.1 Lobulated, fused and horseshoe kidney
CPT/HCPCS: 36415; 74176; 76770; 80048; 80053; 81001; 82570; 82728; 83540; 83550; 84300; 84703; 85025; 85045; 87077; 87086; 87088; 87186; 99283; A4216